=== PATIENT | female | born 1960 | race Caucasian/White ===

== ENCOUNTER 2016-12-16 19:01 | Emergency (ER) | payer MEDICARE, MEDICAID ==
[~2016-12-16] VITALS: Ht 172.7 cm; Wt 72.6 kg
[~2016-12-16 19:01] MED LIST: NYSTATIN OINT15 GM TOPIC
[2016-12-16] MEDS ORDERED: UNOBMED (19:03)
[2016-12-16 19:30] VITALS: BP 117/86
[2016-12-16] MEDS ORDERED: Famotidine 20 MG/ 2ML VIAL IVP ONE (19:45)
[2016-12-16 19:48] LABS: APPEARANCE,URINE SLIGHTLY CLOUDY; KETONES,URINE NEGATIVE (NEGATIVE); LEUKOCYTE ESTERASE ,URINE 3+ (NEGATIVE); NITRITE,URINE POSITIVE (NEGATIVE); PH,URINE 5 (4.5-8.0); PROTEIN,URINE NEGATIVE (NEGATIVE); UROBILINOGEN,URINE NORMAL MG/DL (0.0-1.0)
[2016-12-16 19:58] LABS: EOSINOPHILS % (AUTO) 1.9 % (0.0-3.0); LYMPHOCYTES % (AUTO) 13.7 % (20.0-45.0); MEAN CORPUSCULAR HEMOGLOBIN 30.3 PG (27.0-31.0); MEAN CORPUSCULAR VOLUME 92 FL (80-99); MEAN PLATELET VOLUME 7.8 FL (6.5-10.1); MONOCYTES % (AUTO) 6.6 % (1.0-10.0); NEUTROPHILS % (AUTO) 76.9 % (45.0-75.0); PLATELET COUNT 266 K/UL (150-450); RED CELL DISTRIBUTION WIDTH 12.4 % (11.6-14.8); SQUAMOUS EPITHELIAL CELL,UR FEW /LPF (NONE/OCC)
[2016-12-16 19:59] LABS: BACTERIA,URINE MANY /HPF
[2016-12-16 20:12] LABS: INR 0.9 (0.9-1.1); PROTHROMBIN TIME 9.4 SEC (9.30-11.50)
[2016-12-16 20:14] LABS: ALANINE AMINOTRANSFERASE 14 U/L (3-33); ALBUMIN/GLOBULIN RATIO 1.4 (1.0-2.7); ANION GAP 16 (5-15); ASPARTATE AMINO TRANSFERASE 14 U/L (5-40); CALCIUM 10.2 mg/dL (8.6-10.2); CARBON DIOXIDE 28 mEQ/L (20-30); CHLORIDE 96 mEQ/L (98-107); CREATININE 0.8 mg/dL (0.5-0.9); GLOMERULAR FILTRATION RATE > 60 mL/min (>60); HEMOLYSIS 5; POTASSIUM 3.6 mEQ/L (3.4-4.9); SODIUM 140 mEQ/L (135-145); TOTAL PROTEIN 8.1 g/dL (6.6-8.7)
--- NOTE | 2016-12-16 20:26 | Emergency Room Report ---
History of Present Illness General Chief Complaint: Gastrointestinal Bleed Source: Patient (BURKE RUDOLPH M.D.) Present Illness HPI 56-year-old female presents to ED for evaluation. Patient states the last 2 days she is black tarry stools. Patient notes history of hemorrhoids. Patient has psychiatric history. Resides in boarding care facility. Patient notes some stomach pain. Epigastric. 5/10. Nonradiating. No other aggravating relieving factors. Denies Chest pain or shortness of breath. Denies fevers chills. Denies any blood thinners. Denies any other associated symptoms (BURKE RUDOLPH M.D.) Allergies: Coded Allergies: MORPHINE (Verified Allergy, Unknown, 12/24/15) Patient History Past Medical History: psych hx, other - hemorrhoids Past Surgical History: none Pertinent Family History: none Social History: Denies: alcohol use, drug use, smoking Now: No Immunizations: UTD Reviewed Nursing Documentation: PMH: Agreed, PSxH: Agreed (BURKE RUDOLPH M.D.) Nursing Documentation-PMH Hx Gastrointestinal Problems: Yes - HEMORRHOIDS (BURKE RUDOLPH M.D.) Review of Systems All Other Systems: negative except mentioned in HPI (BURKE RUDOLPH M.D.) Physical Exam Vital Signs Date Time Temp Pulse Resp B/P Pulse Ox O2 Delivery O2 Flow Rate FiO2 12/16/16 19:01 97.9 90 20 117/86 98 Room Air Sp02 EP Interpretation: reviewed, normal General Appearance: no apparent distress, alert, GCS 15, non-toxic Head: normocephalic Eyes: bilateral eye PERRL, bilateral eye normal inspection ENT: normal ENT inspection Neck: normal inspection Respiratory: chest non-tender, lungs clear, normal breath sounds, speaking full sentences Cardiovascular #1: regular rate, rhythm, no edema Gastrointestinal: normal bowel sounds, soft, non-distended, no guarding, no rebound, tenderness - epigastric Rectal: black stool, hemorrhoids, other - fecal impaction Genitourinary: no CVA tenderness Musculoskeletal: normal inspection Neurologic: alert, oriented x3, responsive, motor strength/tone normal, sensory intact, speech normal Psychiatric: anxious Skin: normal inspection Lymphatic: normal inspection (BURKE RUDOLPH M.D.) Medical Decision Making Diagnostic Impression: Primary Impression: Constipation Qualified Codes: K59.00 - Constipation, unspecified Additional Impressions: Hemorrhoids Qualified Codes: K64.9 - Unspecified hemorrhoids UTI (urinary tract infection) Qualified Codes: N30.00 - Acute cystitis without hematuria Labs Test 12/16/16 19:20 White Blood Count 12.0 K/UL (4.8-10.8) Red Blood Count 4.80 M/UL (4.20-5.40) Hemoglobin 14.5 G/DL (12.0-16.0) Hematocrit 44.0 % (37.0-47.0) Mean Corpuscular Volume 92 FL (80-99) Mean Corpuscular Hemoglobin 30.3 PG (27.0-31.0) Mean Corpuscular Hemoglobin Concent 33.0 G/DL (32.0-36.0) Red Cell Distribution Width 12.4 % (11.6-14.8) Platelet Count 266 K/UL (150-450) Mean Platelet Volume 7.8 FL (6.5-10.1) Neutrophils (%) (Auto) 76.9 % (45.0-75.0) Lymphocytes (%) (Auto) 13.7 % (20.0-45.0) Monocytes (%) (Auto) 6.6 % (1.0-10.0) Eosinophils (%) (Auto) 1.9 % (0.0-3.0) Basophils (%) (Auto) 1.0 % (0.0-2.0) Prothrombin Time 9.4 SEC (9.30-11.50) Prothromb Time International Ratio 0.9 (0.9-1.1) Activated Partial Thromboplast Time 25 SEC (23-33) Urine Color Pale yellow Urine Appearance Slightly cloudy Urine pH 5 (4.5-8.0) Urine Specific [place] 1.020 (1.005-1.035) Urine Protein Negative (NEGATIVE) Urine Glucose (UA) Negative (NEGATIVE) Urine Ketones Negative (NEGATIVE) Urine Occult Blood 1+ (NEGATIVE) Urine Nitrite Positive (NEGATIVE) Urine Bilirubin Negative (NEGATIVE) Urine Urobilinogen Normal MG/DL (0.0-1.0) Urine Leukocyte Esterase 3+ (NEGATIVE) Urine RBC 2-4 /HPF (0 - 2) Urine WBC 10-15 /HPF (0 - 2) Urine Squamous Epithelial Cells Few /LPF (NONE/OCC) Urine Bacteria Many /HPF (NONE) Sodium Level 140 mEQ/L (135-145) Potassium Level 3.6 mEQ/L (3.4-4.9) Chloride Level 96 mEQ/L (98-107) Carbon Dioxide Level 28 mEQ/L (20-30) Anion Gap 16 (5-15) Blood Urea Nitrogen 17 mg/dL (7-23) Creatinine 0.8 mg/dL (0.5-0.9) Estimat Glomerular Filtration Rate > 60 mL/min (>60) Glucose Level 82 mg/dL (74-106) Calcium Level 10.2 mg/dL (8.6-10.2) Total Bilirubin < 0.2 mg/dL (0.0-1.2) Aspartate Amino Transf (AST/SGOT) 14 U/L (5-40) Alanine Aminotransferase (ALT/SGPT) 14 U/L (3-33) Alkaline Phosphatase 101 U/L (35-104) Total Protein 8.1 g/dL (6.6-8.7) Albumin 4.8 g/dL (3.5-5.2) Globulin 3.3 g/dL Albumin/Globulin Ratio 1.4 (1.0-2.7) (BURKE RUDOLPH M.D.) ER Course Since sign out to me. She presents with rectal bleeding and constipation. CT scan pending. CT unremarkable other than for constipation. We'll discharge home. (ALPHONSE NIETO M.D.) CT/MRI/US Diagnostic Results CT/MRI/US Diagnostic Results : Imaging Test Ordered: CT abdomen and pelvis Impression read by radiologist. Constipation. (ALPHONSE NIETO M.D.) Last Vital Signs Date Time Temp Pulse Resp B/P Pulse Ox O2 Delivery O2 Flow Rate FiO2 12/16/16 19:01 97.9 90 20 117/86 98 Room Air Status: improved (BURKE RUDOLPH M.D.) Status: improved (ALPHONSE NIETO M.D.) Disposition: HOME, SELF-CARE Condition: Stable Scripts Lactulose (LACTULOSE*) 20 Gm/30 Ml Solution 30 ML ORAL BID, #240 ML 0 Refills Prov: ALPHONSE NIETO M.D. 12/16/16 Cephalexin* (KEFLEX*) 500 Mg Capsule 500 MG ORAL TID, #21 CAP 0 Refills Prov: ALPHONSE NIETO M.D. 12/16/16 Referrals: NOT CHOSEN IPA/,REFERRING (PCP) Additional Instructions: Followup with your Dr. in 7 days. Return if symptom worsen. BURKE RUDOLPH M.D. Dec 16, 2016 20:26 ALPHONSE NIETO M.D. Dec 16, 2016 23:09
[2016-12-16] MEDS ORDERED: Ketorolac 30mg Inj IV ONE (21:30)
[2016-12-16] MEDS ORDERED: cefTRIAXone 1 GM in NS 55 ML IVPB ONE (21:30)
[2016-12-16] MEDS ORDERED: Ketorolac 30mg Inj ONE (21:34)
[2016-12-16] MEDS ORDERED: LACTULOSE20 GM/301 ORAL (23:09)
[2016-12-16] MEDS ORDERED: KEFLEX500 MG ORAL (23:09)
[2016-12-17 00:46] VITALS: BP 117/86
[2016-12-17 00:48] VITALS: BP 117/86
--- NOTE | 2016-12-17 10:11 | Diagnostic Imaging Report ---
Clinical Indication: Abdominal pain, blood clots in stool Technique: No oral contrast utilized, per emergency room physician request IV administration nonionic contrast. Venous phase spiral acquisition obtained through the abdomen and pelvis. Multiplanar reconstructions were generated. Total dose length product 900 mGycm. CTDIvol(s) 17 mGy Comparison: None Findings: The appendix is normal. There is diffuse distention of the colon with a large amount of stool. This extends from the cecum to the level of the splenic flexure. Very dense stool is seen within the distal sigmoid and rectum. There is questionable mild rectal wall thickening. No small bowel distention is demonstrated. The distal esophagus is unremarkable. Makes attenuation material within the stomach is nonspecific in appearance. This may reflect ingested contents or blood. No free or loculated intraperitoneal air or fluid. The gallbladder is surgically absent. There is mild ectasia of the central intrahepatic bile ducts, although the extrahepatic bile ducts are normal in caliber. The liver, pancreas, spleen, adrenals, kidneys are unremarkable. No retroperitoneal or mesenteric mass or adenopathy. Uterus and adnexal structures are unremarkable. The bladder is massively distended. The included lung bases are clear. The bones are unremarkable. Impression: Evidence of severe constipation Very dense stool within the distal colon, may reflect prior enteric contrast ingestion. Equivocal mild rectal wall thickening, proctitis not excludable No acute process otherwise Massively distended bladder Surgically absent gallbladder This agrees with the preliminary interpretation provided overnight by [facility] teleradiology service. The CT scanner at [facility] is accredited by the [employer] and the scans are performed using protocols designed to limit radiation exposure to as low as reasonably achievable to attain images of sufficient resolution adequate for diagnostic evaluation.
--- NOTE | 2016-12-17 11:56 | Diagnostic Imaging Report ---
Indication: Constipation Technique: Supine view of the abdomen Comparison: none Findings: There is distention of the right side of the colon with stool. There is also considerable dense stool within the distal sigmoid and rectum Sandip clips are seen in the right upper quadrant. No small bowel distention. Impression: Findings consistent with constipation This agrees with the preliminary interpretation provided overnight by Dr. Moore
== END 2016-12-17 00:47 | disposition home or self-care (01) ==
LOC: EDBD 19:01 → EMR 19:15
DX: K59.00 Constipation, unspecified (principal); K64.9 Unspecified hemorrhoids; N30.00 Acute cystitis without hematuria; Z88.6 Allergy status to analgesic agent
CPT/HCPCS: 36415; 74000; 74177; 80053; 81003; 85025; 85610; 85730; 86850; 86900; 86901; 87086; 87181; 96374; 96375; 99284; J0696; J1885; Q9967; S0028